=== PATIENT | female | born 1995 | race Caucasian/White ===

== ENCOUNTER 2018-06-30 15:50 | Emergency (ER) | payer OTHER, BC ==
[2015-11-12 08:55] VITALS: Wt 83.9 kg
[~2018-06-30 15:50] MED LIST: CYCL10TA29 PO; DIA5 PO; ETON68IM SQ; FERR325C2 PO; IRON; LAMOT150PT PO; LORA-1455 PO; LORA-1456 PO; MULT-865 PO; ONDA4TAB PO; OXYC-865 PO; PER PO; SUMA25TA26 PO; TRAM-420 PO
[2018-06-30 15:56] VITALS: BP 115/86
--- NOTE | 2018-06-30 15:58 | ER Report ---
History and Physical Time Seen By MD: 15:58 HPI/ROS CHIEF COMPLAINT: Syncopal episode HISTORY OF PRESENT ILLNESS: 23-year-old female patient presents to emergency room with complaint of having had a syncopal episode. Patient states she was at work and had been standing with knees locked for extended period time. She states she went to turn and walk and felt like her vision went black and she woke up on the ground. Patient states that she does have some neck pain, she also has headache. She states that she has no dizziness, nausea, vomiting. Patient states she has not had any diarrhea. She states she's been eating and drinking well without any difficulties. Patient states she has not taken any medication for this. REVIEW OF SYSTEMS: Respiratory: No cough, no dyspnea. Cardiovascular: No chest pain, no palpitations. Gastrointestinal: No vomiting, no abdominal pain. Musculoskeletal: As noted above. Allergies: Coded Allergies: Coconut (Verified Allergy, Unknown, 11/23/16) banana (Verified Allergy, Unknown, 11/23/16) THROAT SWELLING pineapple (Verified Allergy, Unknown, 11/23/16) THROAT SWELLING Penicillins (Verified Adverse Reaction, Intermediate, VOMITING, 11/23/16) metronidazole (Verified Adverse Reaction, Unknown, VOMTING, 11/23/16) Home Meds Reported Medications [Iron] No Conflict Check 08/02/16 Discontinued Scripts Ondansetron (ZOFRAN ODT) 4 Mg Tab.rapdis, 4 MG PO Q8H for Nausea, #15 TAB.JUSTYN 0 Refills Prov:RIMA MAYES MD 11/23/16 Oxycodone Hcl/Acetaminophen (PERCOCET 5-325 MG TABLET) 1 Each Tablet, 1 EACH PO Q4H for PAIN, #10 TAB 0 Refills Prov:RIMA MAYES MD 11/23/16 Past Medical/Surgical History Patient has a past medical history of migraines, murmur, fractures to foot and hand, anemia, substance abuse, alcohol abuse, bipolar, suicide attempt. Patient has surgical history of tonsillectomy. Reviewed Nurses Notes: Yes Hx Smoking: Yes Smoking Status: Current: Every Day Smoker Exposure to Second Hand Smoke?: Yes Hx Substance Use Disorder: Yes Hx Alcohol Use: Yes Constitutional Vital Sign - Last 24 Hours 06/30/18 15:56 Pulse 67 Resp 24 B/P (MAP) 115/86 Pulse Ox 96 O2 Delivery Room Air Physical Exam General Appearance: The patient is alert, has no immediate need for airway protection and no current signs of toxicity. Respiratory: Chest is non tender, lungs are clear to auscultation. Cardiac: regular rate and rhythm Gastrointestinal: Abdomen is soft and non tender, no masses, bowel sounds normal. Musculoskeletal: Neck: Neck is supple and non tender. Extremities have full range of motion and are mildly tender along the midline. Skin: No rashes or lesions. Neuro: Patient is alert and oriented 4, cranial nerves II through XII grossly intact. DIFFERENTIAL DIAGNOSIS: After history and physical exam differential diagnosis was considered for head injury including but not limited to concussion, skull fracture, intraparenchymal contusion, subarachnoid, subdural and epidural hematoma. Medical Decision Making ED Course/Re-evaluation ED Course Patient was admitted and examined, history and physical were obtained. Differential diagnoses were considered. On examination patient is alert and oriented 4, cranial nerves II through XII grossly intact. Patient did have some discomfort along the cervical spine as well as her head. There is no swelling or bumps noted. I discussed my plan with the patient to check a CBC, CMP, test, get a CT scan of the head and cervical spine. Patient initially agreed and then changed her mind and wanted to leave. We will go ahead and have the patient sign out AMA. She is return to emergency room if condition worsens. She is to follow-up with her primary care provider with any concerns. Patient verbalized understanding and agreement. Decision to Disposition Date: Jun 30, 2018 Decision to Disposition Time: 16:28 Depart Departure Latest Vital Signs Vital Signs Date Time Temp Pulse Resp B/P (MAP) Pulse Ox O2 Delivery O2 Flow Rate FiO2 06/30/18 15:56 67 24 115/86 96 Room Air Impression: Primary Impression: Episode of syncope Condition: Condition Unchanged Disposition: AGAINST MED [facility] Problem Qualifiers Primary Impression: Episode of syncope Syncope type: unspecified Qualified Codes: R55 - Syncope and collapse FRAN LUNA Jun 30, 2018 15:58
== END 2018-06-30 16:27 | disposition left against medical advice (07) ==
LOC: ER 16:06
DX: R55 Syncope and collapse (principal); F17.200 Nicotine dependence, unspecified, uncomplicated
CPT/HCPCS: 99283

== ENCOUNTER 2018-07-30 19:18 | Emergency (ER) | payer BC, OTHER ==
[2015-11-12 08:55] VITALS: Wt 84.0 kg
[2018-07-30] MEDS ORDERED: QUET150T2 (19:31)
[2018-07-30] MEDS ORDERED: ESCI20TA8 PO (19:31)
--- NOTE | 2018-07-30 19:36 | ER Report ---
History and Physical Time Seen By MD: 19:32 Hx. of Stated Complaint: CRAMPING, ABDOMINAL PAIN, DIARRHEA FOR AN HOUR HPI/ROS CHIEF COMPLAINT: Blood in stool HISTORY OF PRESENT ILLNESS: This is a 23-year-old female who presents to the emergency department for blood in her stool. Patient states that she developed blood in her stool, states it was not bright red but it was not dark. She's had diarrhea for approximately an hour, but that has also resolved. Lower abdominal cramping. Patient states she is not on her menstrual cycle. Patient denies trauma to the rectal area. No recent fevers or chills. No recent travel. No other illnesses. No history of Crohn's disease or diverticulitis. No chest pain or shortness of breath. REVIEW OF SYSTEMS: Respiratory: No cough, no dyspnea. Cardiovascular: No chest pain, no palpitations. Gastrointestinal: As above. Musculoskeletal: No back pain. Allergies: Coded Allergies: Coconut (Verified Allergy, Unknown, 07/30/18) banana (Verified Allergy, Unknown, 07/30/18) THROAT SWELLING pineapple (Verified Allergy, Unknown, 07/30/18) THROAT SWELLING Penicillins (Verified Adverse Reaction, Intermediate, VOMITING, 07/30/18) metronidazole (Verified Adverse Reaction, Unknown, VOMTING, 07/30/18) Home Meds Reported Medications Escitalopram Oxalate (ESCITALOPRAM OXALATE) 20 Mg Tablet, 20 MG PO QDAY 07/30/18 Quetiapine Fumarate (Quetiapine Fumarate ER) 150 Mg Tab.er.24h 07/30/18 Discontinued Reported Medications [Iron] No Conflict Check 08/02/16 Hx Smoking: Yes Smoking Status: Current: Every Day Smoker Exposure to Second Hand Smoke?: Yes Hx Substance Use Disorder: Yes Hx Alcohol Use: Yes Constitutional Vital Sign - Last 24 Hours 07/30/18 19:27 Temp 98.3 Pulse 67 Resp 18 B/P (MAP) 141/94 Pulse Ox 92 Physical Exam General Appearance: The patient is alert, has no immediate need for airway protection and no current signs of toxicity. Eyes: Pupils equal and round no injection. Respiratory: Chest is non tender, lungs are clear to auscultation. Cardiac: regular rate and rhythm. Gastrointestinal: Abdomen is round, soft generalized lower abdominal pain. no masses, bowel sounds normal. Musculoskeletal: Neck: Neck is supple and non tender. Extremities have full range of motion and are non tender. Skin: No rashes or lesions. DIFFERENTIAL DIAGNOSIS: After history and physical exam differential diagnosis was considered for abdominal pain in a female including but not limited to ovarian cyst, upper and lower GI bleed, anal fissure, pelvic inflammatory diseas e, ovarian torsion, urinary tract infection, and appendicitis. Medical Decision Making Data Points Result Diagram: 07/30/18202807/30/182028 Laboratory Hematology Test 07/30/18 19:44 07/30/18 19:50 07/30/18 20:29 Stool Occult Blood (IFOB) Positive (NEGATIVE) Urine Color Straw Urine Clarity Clear Urine pH 6.0 pH (4.8-9.5) Urine Specific [place] 1.008 Urine Protein Negative mg/dL (NEGATIVE) Urine Glucose (UA) Negative mg/dL (NEGATIVE) Urine Ketones Negative mg/dL (NEGATIVE) Urine Blood Negative (NEGATIVE) Urine Nitrite Negative (NEGATIVE) Urine Bilirubin Negative (NEGATIVE) Urine Urobilinogen Negative mg/dL (0.2-1.9) Urine Leukocyte Esterase Negative (NEGATIVE) Urine RBC None /HPF (0-2/HPF) Urine WBC None /HPF (0-5/HPF) Urine Squamous Epithelial Cells Many /LPF (</=FEW) Urine Bacteria Negative /HPF (NONE-FEW) Urine Mucus None /HPF (NONE-FEW) Red Blood Count 4.75 M/uL (4.17-5.56) Mean Corpuscular Volume 84.6 fL (80.0-96.0) Mean Corpuscular Hemoglobin 30.5 pg (26.0-33.0) Mean Corpuscular Hemoglobin Concent 36.0 g/dL (32.0-36.0) Red Cell Distribution Width 12.7 % (11.5-14.5) Mean Platelet Volume 7.8 fL (7.2-11.1) Neutrophils (%) (Auto) 59.5 % (39.4-72.5) Lymphocytes (%) (Auto) 30.6 % (17.6-49.6) Monocytes (%) (Auto) 7.3 % (4.1-12.4) Eosinophils (%) (Auto) 1.8 % (0.4-6.7) Basophils (%) (Auto) 0.8 % (0.3-1.4) Nucleated RBC Relative Count (auto) 0.1 /100WBC Neutrophils # (Auto) 4.8 K/uL (2.0-7.4) Lymphocytes # (Auto) 2.5 K/uL (1.3-3.6) Monocytes # (Auto) 0.6 K/uL (0.3-1.0) Eosinophils # (Auto) 0.1 K/uL (0.0-0.5) Basophils # (Auto) 0.1 K/uL (0.0-0.1) Nucleated RBC Absolute Count (auto) 0.00 K/uL Sodium Level 138 mmol/L (137-145) Potassium Level 3.7 mmol/L (3.5-5.0) Chloride Level 105 mmol/L (98-107) Carbon Dioxide Level 22 mmol/L (22-31) Blood Urea Nitrogen 13 mg/dl (7-18) Creatinine 0.80 mg/dl (0.52-1.04) Glomerular Filtration Rate Calc > 60.0 Random Glucose 94 mg/dl (75-110) Calcium Level 8.9 mg/dl (8.4-10.2) Total Bilirubin 0.2 mg/dl (0.2-1.3) Aspartate Amino Transf (AST/SGOT) 22 U/L (0-35) Alanine Aminotransferase (ALT/SGPT) 26 U/L (0-56) Alkaline Phosphatase 72 U/L (0-126) Total Protein 6.5 g/dl (6.3-8.2) Albumin 3.9 g/dl (3.5-5.0) Lipase 43 U/L (23-300) Human Chorionic Gonadotropin, Qual Negative (NEGATIVE) Chemistry Test 07/30/18 19:44 07/30/18 19:50 07/30/18 20:29 Stool Occult Blood (IFOB) Positive (NEGATIVE) Urine Color Straw Urine Clarity Clear Urine pH 6.0 pH (4.8-9.5) Urine Specific [place] 1.008 Urine Protein Negative mg/dL (NEGATIVE) Urine Glucose (UA) Negative mg/dL (NEGATIVE) Urine Ketones Negative mg/dL (NEGATIVE) Urine Blood Negative (NEGATIVE) Urine Nitrite Negative (NEGATIVE) Urine Bilirubin Negative (NEGATIVE) Urine Urobilinogen Negative mg/dL (0.2-1.9) Urine Leukocyte Esterase Negative (NEGATIVE) Urine RBC None /HPF (0-2/HPF) Urine WBC None /HPF (0-5/HPF) Urine Squamous Epithelial Cells Many /LPF (</=FEW) Urine Bacteria Negative /HPF (NONE-FEW) Urine Mucus None /HPF (NONE-FEW) White Blood Count 8.0 k/uL (4.5-11.0) Red Blood Count 4.75 M/uL (4.17-5.56) Hemoglobin 14.5 g/dL (12.0-16.0) Hematocrit 40.2 % (34.0-47.0) Mean Corpuscular Volume 84.6 fL (80.0-96.0) Mean Corpuscular Hemoglobin 30.5 pg (26.0-33.0) Mean Corpuscular Hemoglobin Concent 36.0 g/dL (32.0-36.0) Red Cell Distribution Width 12.7 % (11.5-14.5) Platelet Count 271 K/uL (150-450) Mean Platelet Volume 7.8 fL (7.2-11.1) Neutrophils (%) (Auto) 59.5 % (39.4-72.5) Lymphocytes (%) (Auto) 30.6 % (17.6-49.6) Monocytes (%) (Auto) 7.3 % (4.1-12.4) Eosinophils (%) (Auto) 1.8 % (0.4-6.7) Basophils (%) (Auto) 0.8 % (0.3-1.4) Nucleated RBC Relative Count (auto) 0.1 /100WBC Neutrophils # (Auto) 4.8 K/uL (2.0-7.4) Lymphocytes # (Auto) 2.5 K/uL (1.3-3.6) Monocytes # (Auto) 0.6 K/uL (0.3-1.0) Eosinophils # (Auto) 0.1 K/uL (0.0-0.5) Basophils # (Auto) 0.1 K/uL (0.0-0.1) Nucleated RBC Absolute Count (auto) 0.00 K/uL Glomerular Filtration Rate Calc > 60.0 Calcium Level 8.9 mg/dl (8.4-10.2) Total Bilirubin 0.2 mg/dl (0.2-1.3) Aspartate Amino Transf (AST/SGOT) 22 U/L (0-35) Alanine Aminotransferase (ALT/SGPT) 26 U/L (0-56) Alkaline Phosphatase 72 U/L (0-126) Total Protein 6.5 g/dl (6.3-8.2) Albumin 3.9 g/dl (3.5-5.0) Lipase 43 U/L (23-300) Human Chorionic Gonadotropin, Qual Negative (NEGATIVE) Urinalysis Test 07/30/18 19:50 Urine Color Straw Urine Clarity Clear Urine pH 6.0 pH (4.8-9.5) Urine Specific [place] 1.008 Urine Protein Negative mg/dL (NEGATIVE) Urine Glucose (UA) Negative mg/dL (NEGATIVE) Urine Ketones Negative mg/dL (NEGATIVE) Urine Blood Negative (NEGATIVE) Urine Nitrite Negative (NEGATIVE) Urine Bilirubin Negative (NEGATIVE) Urine Urobilinogen Negative mg/dL (0.2-1.9) Urine Leukocyte Esterase Negative (NEGATIVE) Urine RBC None /HPF (0-2/HPF) Urine WBC None /HPF (0-5/HPF) Urine Squamous Epithelial Cells Many /LPF (</=FEW) Urine Bacteria Negative /HPF (NONE-FEW) Urine Mucus None /HPF (NONE-FEW) EKG/Imaging Imaging CT abdomen and pelvis with IV contrast Indication: Abdominal pain and bloody stool. Comparison: 06/13/2017.. Technique: Axial CT images were obtained through the abdomen and pelvis during injection of nonionic iodinated intravenous contrast. Reformatted coronal and sagittal images were also obtained. One of the following dose optimization techniques was utilized in the performance of this exam: Automated exposure control; adjustment of the mA and/or kV according to the patient's size; or use of an iterative reconstruction technique. Specific details can be referenced in the facility's radiology CT exam operational policy. Contrast: 75 ml of Isovue-370 IV contrast. Findings: Lower lung gonzalez: Limited views lower lung field are unremarkable. Liver: No focal parenchymal abnormality of the liver. Biliary: Gallbladder somewhat contracted with a fold in the superior aspect similar to previous examination. No focal abnormality. The biliary system is unremarkable. Pancreas: Normal appearance. Spleen: Normal appearance. Adrenal glands: Unremarkable. Kidneys / retroperitoneum: No evidence of nephrolithiasis or hydronephrosis. No focal abnormality. Bowel / peritoneum / mesenteries: Visualized gastrointestinal tract, including the appendix, within normal limits. Stomach is unremarkable. No free air, free fluid, fluid collections or areas of inflammation. Lymph node assessment: No pathologic adenopathy identified. Pelvic structures: Pelvic structures visualized within normal limits. IUD appears to be in good position within the uterus. Vessels: No significant atherosclerotic calcifications seen throughout a nonaneurysmal abdominal aorta and branches. Musculoskeletal / Body wall: No acute or aggressive osseous abnormality. IMPRESSION: 1. No acute intra-abdominal abnormality Report Dictated By: Steve Neri at 07/30/2018 9:31 PM Report E-Signed By: Steve Neri at 07/30/2018 9:37 PM WSN:[id number] ED Course/Re-evaluation Clinical Indication for ER IV: Hydration, IV Access ED Course The patient was admitted to a room. A history and physical obtained. Differential diagnoses were considered. An IV was started. A CBC, CMP and UA were obtained. Lab studies unremarkable. Patient was Hemoccult positive. No other findings. A CT of the abdomen and pelvis negative for any acute intra- abdominal findings. I did review the CT results and the laboratory studies with the patient. I did tell the patient that I don't have a clear explanation as to why she has the blood in her stool. I did recommend no NSAIDs or spicy foods. This could be a gastroenteritis. I did recommend following up with Dr. Reyes at some point for evaluation and consideration of colonoscopy for definitive diagnoses of any intra-abdominal pathology. The patient expressed understanding and was discharged home. I also recommended that the patient's establish with a primary care provider. The patient had no other questions or concerns at this time and was discharged home. Return to the ER for any other concerns. Decision to Disposition Date: Jul 30, 2018 Decision to Disposition Time: 22:06 Depart Departure Latest Vital Signs Vital Signs Date Time Temp Pulse Resp B/P (MAP) Pulse Ox O2 Delivery O2 Flow Rate FiO2 07/30/18 19:27 98.3 67 18 141/94 92 Impression: Primary Impression: Abdominal pain Additional Impression: Blood in stool Condition: Improved Disposition: HOME OR SELF-CARE Referrals: HEMAL CORNEJO MD Patient Instructions: Abdominal Pain (ED), Rectal Bleeding (ED) Additional Instructions: There are no concerning findings on your CT scan today. Your laboratory studies are normal. Avoid spicy foods and NSAIDs for the next several weeks. Take Tylenol as needed for pain. Establish with a primary care provider within the next 1-2 weeks for reevaluation of the blood in your stool. Drink plenty of water. Get plenty of rest. Return to the ER for any other concerns or worsening symptoms. I would also recommend following up with Dr. Reyes at some point in the near future for discussions on colonoscopies. Problem Qualifiers Primary Impression: Abdominal pain Abdominal location: lower abdomen, unspecified Qualified Codes: R10.30 - Lower abdominal pain, unspecified JANEE ARENAS LEARNING SPECIALIST-BC Jul 30, 2018 19:36
[2018-07-30] MEDS ORDERED: NS(*) 0.9% 1000 ML BAG 1,000 ML IV ONE (19:49)
[2018-07-30] MEDS ORDERED: ONDANSETRON 4 MG/2 ML VIAL IVP ONE (19:50)
[2018-07-30] MEDS ORDERED: IOPAMIDOL 76% 75 ML INFUS BTL 75 ML ONE (20:25)
[2018-07-30 20:36] LABS: PLATELET COUNT, AUTOMATED 271 K/uL (150-450)
--- NOTE | 2018-07-30 21:40 | RADIOLOGY IMAGING REPORT ---
FACILITY: [facility] - [place] PATIENT NAME: Beatriz English : 1995 MR: [id number] V: [id number] EXAM DATE: ORDERING PHYSICIAN: JANEE ARENAS TECHNOLOGIST: Location: [facility] [place] Patient: Beatriz English : 1995 Visit/Account:[id number] Date of Sevice: 07/30/2018 CT abdomen and pelvis with IV contrast Indication: Abdominal pain and bloody stool. Comparison: 06/13/2017.. Technique: Axial CT images were obtained through the abdomen and pelvis during injection of nonioni c iodinated intravenous contrast. Reformatted coronal and sagittal images were also obtained. One of the following dose optimization techniques was utilized in the performance of this exam: Autom ated exposure control; adjustment of the mA and/or kV according to the patient's size; or use of an i terative reconstruction technique. Specific details can be referenced in the facility's radiology C T exam operational policy. Contrast: 75 ml of Isovue-370 IV contrast. Findings: Lower lung gonzalez: Limited views lower lung field are unremarkable. Liver: No focal parenchymal abnormality of the liver. Biliary: Gallbladder somewhat contracted with a fold in the superior aspect similar to previous exami nation. No focal abnormality. The biliary system is unremarkable. Pancreas: Normal appearance. Spleen: Normal appearance. Adrenal glands: Unremarkable. Kidneys / retroperitoneum: No evidence of nephrolithiasis or hydronephrosis. No focal abnormality. Bowel / peritoneum / mesenteries: Visualized gastrointestinal tract, including the appendix, within n ormal limits. Stomach is unremarkable. No free air, free fluid, fluid collections or areas of inflamm ation. Lymph node assessment: No pathologic adenopathy identified. Pelvic structures: Pelvic structures visualized within normal limits. IUD appears to be in good po sition within the uterus. Vessels: No significant atherosclerotic calcifications seen throughout a nonaneurysmal abdominal aort a and branches. Musculoskeletal / Body wall: No acute or aggressive osseous abnormality. IMPRESSION: 1. No acute intra-abdominal abnormality Report Dictated By: Steve Neri at 07/30/2018 9:31 PM Report E-Signed By: Steve Neri at 07/30/2018 9:37 PM WSN:[id number]
[2018-07-30 22:00] VITALS: BP 121/78
== END 2018-07-30 22:25 | disposition home or self-care (01) ==
LOC: ER 19:54
DX: R10.30 Lower abdominal pain, unspecified (principal); K92.1 Melena
CPT/HCPCS: 74177; 81001; 82274; 83690; 84703; 85025; 96361; 96374; 99284; J2405; J7030; Q9967; 82040; 82247; 82310; 82374; 82435; 82565; 82947; 84075; 84132; 84155; 84295; 84450; 84460; 84520

== ENCOUNTER → 2018-09-03 | Outpatient (CLI) | payer BC ==
[2015-11-12 08:55] VITALS: BMI 29.1
[~2018-09-03] MED LIST changes: +ESCI20TA8 PO; +OMEP-125 PO; +QUET150T2
== END ==
LOC: LAB 09:25
PROVIDERS: ATTEND Surgery
DX: R10.84 Generalized abdominal pain (principal); R19.8 Other specified symptoms and signs involving the digestive system and abdomen; K92.1 Melena; R19.4 Change in bowel habit; R14.0 Abdominal distension (gaseous); R11.0 Nausea
CPT/HCPCS: 36415; 83516; 85651; 86140

== ENCOUNTER → 2018-09-03 | Outpatient (CLI) | payer BC ==
[2015-11-12 08:55] VITALS: BMI 29.1
[2018-09-03 10:22] LABS: PLATELET COUNT, AUTOMATED 244 K/uL (150-450)
[2018-09-03 10:35] LABS: LDL CHOLESTEROL 125 mg/dl
== END ==
LOC: LAB 10:12
PROVIDERS: ATTEND Nurse Practitioner Family
DX: G62.9 Polyneuropathy, unspecified (principal); R63.1 Polydipsia; R63.2 Polyphagia; R53.83 Other fatigue; Z86.39 Personal history of other endocrine, nutritional and metabolic disease
CPT/HCPCS: 82040; 82247; 82310; 82374; 82435; 82465; 82565; 82607; 82728; 82746; 82947; 83036; 83540; 83550; 83718; 84075; 84132; 84155; 84295; 84443; 84450; 84460; 84478; 84520; 85025

== ENCOUNTER → 2018-09-04 | Outpatient (CLI) | payer BC ==
[2015-11-12 08:55] VITALS: BMI 29.1
[~2018-09-04] MED LIST changes: +BARIUM SULFATE 176 GM BTL PO ONE; +BARIUM SULFATE 340 GM POWD ONE; +ONDA4TAB97 PO
--- NOTE | 2018-09-04 10:20 | RADIOLOGY IMAGING REPORT ---
FACILITY: [facility] [place] PATIENT NAME: Beatriz English : 1995 MR: [id number] V: [id number] EXAM DATE: ORDERING PHYSICIAN: HEMAL CORNEJO TECHNOLOGIST: Location: [facility] Patient: Beatriz English : 1995 Visit/Account:[id number] Date of Sevice: 09/04/2018 GALLBLADDER HISTORY: Abdomen pain, postprandial bloating COMPARISON: June 13, 2017 FINDINGS: Gallbladder: Unremarkable; no stones or sludge. Liver: Negative. Common duct: Normal, 3.6 mm diameter. Pancreas: Partially obscured by bowel, visualized aspects unremarkable. Right kidney: Negative. Upper abdominal aorta and IVC: Patent. Ascites: None visualized. IMPRESSION: Unremarkable right upper quadrant ultrasound Report Dictated By: Monse Diaz MD at 09/04/2018 10:02 AM Report E-Signed By: Monse Diaz MD at 09/04/2018 10:15 AM WSN:[email or web address]
--- NOTE | 2018-09-04 15:37 | RADIOLOGY IMAGING REPORT ---
FACILITY: [facility] - [place] PATIENT NAME: Beatriz English : 1995 MR: [id number] V: [id number] EXAM DATE: ORDERING PHYSICIAN: HEMAL CORNEJO TECHNOLOGIST: Location: [facility] Patient: Beatriz English : 1995 Visit/Account:[id number] Date of Sevice: 09/04/2018 Exam type: UPPER GI W/SMALL BOWEL SERIES History: Nausea and cramping heartburn, constipation Comparison: None. Findings: Preliminary control area operator film of the abdomen demonstrates a moderate amount of fecal material in colon which can be seen with constipation. The IUD is in the pelvis just to the right of midline The patient was given effervescent crystals with a small amount of water for the air contrast portion examination. The patient then received several sips of thick barium however the patient vomited donnie e of the barium and stated she was too nauseated to complete the examination there for the examinatio n was terminated at that time. The fluoroscopy dose area product was 166.46 micro-Puente per meter squ ared IMPRESSION: 1. Incomplete examination as the patient was too nauseated to drink the barium for the upper GI seri es and small bowel follow-through Report Dictated By: Monse Diaz MD at 09/04/2018 3:30 PM Report E-Signed By: Monse Diaz MD at 09/04/2018 3:32 PM WSN:[email or web address]
== END ==
LOC: RAD 00:42
PROVIDERS: ATTEND Surgery
DX: R10.84 Generalized abdominal pain (principal); R19.8 Other specified symptoms and signs involving the digestive system and abdomen; K92.1 Melena; R19.4 Change in bowel habit; R14.0 Abdominal distension (gaseous); R11.0 Nausea
CPT/HCPCS: 74245; 76705

== ENCOUNTER 2018-10-03 03:37 | Day surgery (SDC) | payer BC ==
[2015-11-12 08:55] VITALS: Ht 165.1 cm; Wt 87.1 kg
[~2018-10-03] VITALS: Ht 165.1 cm; Wt 87.1 kg
[~2018-10-03 03:37] MED LIST changes: -BARIUM SULFATE 176 GM BTL PO ONE; -BARIUM SULFATE 340 GM POWD ONE
[2018-10-03] MEDS ORDERED: LIDOCAINE MPF 1% 5 ML VIAL ONE (08:36)
[2018-10-03] MEDS ORDERED: PROPOFOL EMUL(*) 10MG/ML 20 ML 40 ML ONE (08:36)
[2018-10-03] MEDS ORDERED: KETAMINE HCL-NS 50 MG/5 ML SYR ONE (08:37)
[2018-10-03 08:56] VITALS: BP 117/80
[2018-10-03] MEDS ORDERED: LIDOCAINE/SOD BICARB 8.4% SYR ID ONE (09:15)
[2018-10-03] MEDS ORDERED: NORMOSOL R SOLN(*) 1000 ML BAG 1,000 ML IV PRN (09:15)
[2018-10-03 09:49] VITALS: BP 93/63
--- NOTE | 2018-10-03 09:58 | Short(Outpt) Discharge Summary ---
Discharge Summary Reason for Hosp/Final Diag: (1) Blood in stool Status: Chronic Hospital Course & Plan: EGD and colonoscopy, both with biopsies, completed without problems. (2) Change in bowel habits Status: Chronic (3) Abdominal pain Status: Chronic (4) Postprandial bloating Status: Chronic (5) Alternating constipation and diarrhea Status: Chronic Departure Discharge to: Home, Self Care Discharge Instructions Home Meds No Active Prescriptions or Reported Meds Diet: Regular Activity: As Tolerated Special Instructions: Your upper endoscopy and colonoscopy were completed without problems and your prep was excellent (Good Job!!). I didn't find any inflammation, polyps, cancer, or other abnormalities. I did perform biopsies throughout your stomach, duodenum, and colon. My office will call you in the next couple of days to schedule a HIDA scan to assess your gallbladder function and schedule a follow up appointment for you to see me back in my office to discuss all of these results. Problem Qualifiers (1) Abdominal pain: Abdominal location: generalized Qualified Codes: R10.84 - Generalized a bdominal pain HEMAL CORNEJO MD Oct 03, 2018 09:58
[2018-10-03 10:17] VITALS: BP 92/75
[2018-10-03 10:18] VITALS: BP 105/72
== END 2018-10-03 10:38 | disposition home or self-care (01) ==
LOC: OR 03:37
PROVIDERS: ATTEND Surgery
DX: K21.9 Gastro-esophageal reflux disease without esophagitis (principal); K92.1 Melena; R19.7 Diarrhea, unspecified; K59.00 Constipation, unspecified
CPT/HCPCS: 00813; 43239; 45380; 81025; 87077; 88305; J2001; J2704; J3490